=== PATIENT | female | born 1965 | race Two or more races ===

== ENCOUNTER 2024-05-17 13:22 | Outpatient (RCR) | payer BC, SELFPAY ==
--- NOTE | 2024-05-17 14:48 | CTCFLWUP_ITS ---
[facility] [address] [place], [place] [address] FOLLOW-UP NOTE Date: 05/17/2024 MR#: [id number] Name: RAGHAVENDRA VASQUEZ : 1965 Dx: C50.512 Malignant neoplasm of lower-outer quadrant of left female breast Identification. Patient with stage IIa ([id number]) receptor positive HER2 negative lobular CA left b reast status post left breast lumpectomy chemo not offered due to low pro Funmi adjuvant radiation th erapy to the left breast 04/12/2023 through 05/07/2023 4990. Has had left breast tenderness shortly after treatment. Patient currently on tamoxifen. Left mammogram 04/03/2024 probable benign findings recommending repeat in 6 months. Had left breast ultrasound 04/21/2024 cyst 5 x 4 x 5 mm no solid nodules along with extensive scar f ormation and skin edema probable benign findings category 3. Recommending 6 months as well. As I see patient there is persistent redness and tenderness in the lateral portion of the breast. No discrete tumor felt. Patient has already seen medical. Oncologist Dr. Pereira who has ordered imaging studies for December 22. A#!. Stage IIa receptor positive HER2 negative invasive lobular left breast CA status post partial m astectomy postoperation therapy completed 05/07/2003. #2. Patient on tamoxifen with low risk pro Funmi score. #3. Has persistent erythema and induration left breast. Imaging studies ultrasound and mammogram sug gest benign process repeat in 6 months time. #4. Being followed by medical oncologist Dr. Pereira who has ordered imaging studies for December 2024 a nd will see her prior. I will see her as needed in the future. Electronically signed by: Roshan Luciano M.D. 05/17/2024 2:46 PM
== END 2024-06-03 23:59 | disposition home or self-care (01) ==
LOC: SCTC 13:22
PROVIDERS: PCP Internal Medicine; Referring Provider Internal Medicine; Visit Provider Radiology Therapeutic Radiology
DX: C50.512 Malignant neoplasm of lower-outer quadrant of left female breast (principal); Z17.0 Estrogen receptor positive status [ER+]; Z17.32 Human epidermal growth factor receptor 2 negative status; Z90.12 Acquired absence of left breast and nipple; Z79.810 Long term (current) use of selective estrogen receptor modulators (SERMs); N64.51 Induration of breast
CPT/HCPCS: 99212; G0463

== ENCOUNTER → 2024-10-03 | Outpatient (CLI) | payer BC, SELFPAY ==
--- NOTE | 2024-10-03 13:00 | XR_ITS ---
Examination: Diagnostic digital mammography, bilateral Computer aided detection 3-D breast Tomosynthesis, bilateral Date and time of exam: October 03, 2024 1253 hours Compared to mammograms dating to July 29, 2020 INDICATIONS: Mammograms December 03, 2023 August 26, 2022 and 04/03/2024 extensive architectural distortion left breast, history left breast carcinoma post treatment Technique: Nonmagnified MLO, CC views of the breasts to been obtained, reconstructed from 3-D Tomosynthesis images. R2 computer aided detection program utilized for evaluation of suspicious masses and/or abnormal calcifications. 3-D Tomosynthesis images obtained. Findings: No significant change in extensive architectural distortion outer left breast with surgical clips Benign calcifications Scattered areas of fibroglandular density Impression: BI-RADS Category 0: Incomplete: Need additional imaging evaluation Follow-up left breast sonography is needed to compare with the April 21, 2024 exam.
== END | disposition home or self-care (01) ==
LOC: CDIM 12:11
PROVIDERS: PCP Internal Medicine; Referring Provider Internal Medicine; Visit Provider Internal Medicine
DX: R92.8 Other abnormal and inconclusive findings on diagnostic imaging of breast (principal); Z85.3 Personal history of malignant neoplasm of breast
CPT/HCPCS: 77062; 77066; G0279

== ENCOUNTER → 2024-10-24 | Outpatient (CLI) | payer BC, SELFPAY ==
--- NOTE | 2024-10-24 14:30 | XR_ITS ---
Examination: Breast ultrasound, unilateral, left Date and time of exam: October 24, 2024 1408 hours Comparison April 21, 2024 INDICATIONS: Personal history left breast cancer lumpectomy 2022, left breast sonogram April 21, 2024 extensive scar formation 4:00 position left breast Technique: Real-time benedict scale ultrasonographic imaging performed left breast including all 4 quadrants as well as nipple retroareolar and axillary region. Findings: 8:00 cyst 4 x 4 millimeter 4:00 scar formation again noted with skin edema IMPRESSION: BI-RADS Category 2: Benign findings
== END | disposition home or self-care (01) ==
LOC: CDIM 13:46
PROVIDERS: PCP Internal Medicine; Referring Provider Internal Medicine Hematology & Oncology; Visit Provider Internal Medicine Hematology & Oncology
DX: N60.02 Solitary cyst of left breast (principal); C50.512 Malignant neoplasm of lower-outer quadrant of left female breast; C50.412 Malignant neoplasm of upper-outer quadrant of left female breast
CPT/HCPCS: 76641

== ENCOUNTER 2024-12-11 14:55 | Outpatient (RCR) | payer BC, SELFPAY ==
--- NOTE | 2024-12-17 23:15 | CTCFLWUP_ITS ---
Patient: RAIZA ROBERTS : 1965 Page 2 of 3 FOLLOW UP NOTE DATE OF SERVICE: 12/11/2024 NAME: RAIZA ROBERTS ACCOUNT: [id number] : 1965 AGE: 59 INTERVAL HISTORY: Subjective: Chief Complaint Follow-up for breast cancer treatment, anxiety and mood changes related to medication History of Present Illness Raiza Sloan is a female patient with a history of breast cancer, presenting for follow-up. She reports sleeping on the couch, which she finds uncomfortable. The patient is currently taking tamoxifen and vitamin D daily. She mentions experiencing anxiety, depression, and mood changes when she was on a different medication, which she describes as normal with a new diagnosis. The patient underwent a lumpectomy on 12/21/2022 for stage two breast cancer, following a biopsy on 11/04/2022. She completed radiation therapy from April 12 to May 07, 2023. Raiza is adhering to her current treatment regimen and reports taking her medications as prescribed. She mentions that people often tell her they can't tell she had cancer, indicating a positive recovery process. Raiza discusses her attempt to apply for shelter from [employer], which was denied due to improper documentation. This situation appears to be causing some stress, as she needs to gather all relevant medical records to reapply correctly. Medications and Supplements - Vitamin D - Taken daily - Tamoxifen - Patient reports being anxious, depressed, and welch on previous medication (likely anastrozole) - Anastrozole - Discontinued - Patient reports being anxious, depressed, and welch on this medication Review of Systems Psychiatric: Positive for anxiety and depression (previously). Objective: Laboratory, Imaging, and Diagnostic Test Results - Biopsy: 11/04/2022 - Mammogram: November 2022 ONCOLOGY HISTORY: DIAGNOSIS: Stage IIa (pT2, pN0, cM0), grade 1, ER positive, NH positive, HER2/honey negative invasive lobular carcinoma of the left breast (s/p left breast lumpectomy and sentinel lymph node biopsy (12/21/2022) Prosigna (R) breast cancer gene signature assay score showed low risk disease. Chemotherapy not offered. S/p adjuvant radiation therapy to the left breast (04/12/2023 - 05/07/2023) Anastrozole was started on 07/29/2023. Anastrozole discontinued due to significant mood swings. Patient was started on tamoxifen on 12/14/2023 and is currently taking History family history of breast cancer. Sister had breast cancer in her late 40s. BRCA 1and2 negative. Obesity REASON FOR TODAY?S VISIT: Patient is 59-year-old woman who is obese but fairly active. Patient have early stage breast cancer for which she was treated with a lumpectomy and adjuvant radiation followed by anastrozole. Patient has been on tamoxifen since December 2023 as was unable to tolerate anastrozole Patient complains of itching on her hand and legs which is chronic for her and she scratches herself. Hydrocortisone cream seems to relieve it. Malignant neoplasm of lower-outer quadrant of left female breast [ICD10] C50.512; Malignant neoplasm of upper-outer quadrant of left female breast [ICD10] C50.412 DATE OF DIAGNOSIS: 11/04/2022 STAGE/TNM: [id number] prosigna 34-low risk TREATMENT HISTORY: Care?Plan Start?Date Cycle Day Intent Tamoxifen and vit D3 HISTORY OF PRESENT ILLNESS: Raiza Roberts is a 59-year-old ENG speaking female with the following oncology history. 08/01/2022: Bilateral screening mammograms? 08/26/2022: Left breast ultrasound? 11/04/2022: Ultrasound-guided percutaneous left breast biopsy? 12/18/2022: Patient had a left breast partial mastectomy and sentinel lymph node biopsy? 01/20/2023: Patient was seen by radiation oncologist Dr. Herzog. Dr. Luciano ordered BRCA 1and2 study as well as Oncotype DX study. 02/03/2023: [facility] hereditary cancer test is negative for BRCA 1 and 2 mutations. 02/04/2023: Prosigna (R) breast cancer gene signature assay score 34 (low risk) 07/29/2023: Anastrozole 1 mg p.o. daily prescribed. 09/13/2023: Bone density test 12/14/2023: Anastrozole discontinued due to mood swings. Patient is started on tamoxifen 20 mg p.o. daily. OTHER MEDICAL HISTORY/CONDITIONS: Depression/anxiety Endometriosis - dx 2004 Left breast cancer Left breast partial mastecomy; sentinel node biopsy - 12/18/22 Cholecystectomy 2000 Ectopic - 2002 Cervical spine surgery Left knee surgery - 1996 FAMILY HISTORY: Sibling: brother -dx 37- melenoma; sister dx 48 - breast Cancer History:?2 paternal cousins- utrine/ ovarian in 30's SOCIAL HISTORY: Occupational?History:?Medically retired [employer] Education?Level:?College Graduate, 2 year degree Marital?Status:? 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 bupropion HCl - 150 mg Daily 2. Citracal + D Slow Release - 600 mg-12.5 mcg (500 unit) 1 tab one tab po twice a day 3. hydrocodone-acetaminophen - 5-325 mg 1 tab three times a day 4. hydrocortisone - 0.5 % 5 mg Daily 5. methocarbamol - 750 mg 1 tab Every day before sleep 6. sertraline - 100 mg Daily 7. tamoxifen - 20 mg 1 tab one tab po q daily Medications Last Reconciled by Cathy Nguyen MA on 12/11/2024 ALLERGIES: CODEINE PHOSPHATE REVIEW OF SYSTEMS: A complete 14-point review of systems was performed and is negative except as noted in interval history. PHYSICAL EXAMINATION: VITAL SIGNS: Temperature?99.7, B/P?152/91, Oxygen?Saturation?96% PAIN: 0 - No pain ECOG Performance Status: 0 - Asymptomatic and fully active GENERAL APPEARANCE: Appears well, in no apparent distress, appropriately interactive. HEENT: Normocephalic, no temporal wasting, normal conjunctiva, no scleral icterus, normal hearing, lips without lesions, neck normal range of motion. CARDIOVASCULAR: Not assessed. PULMONARY: Normal respiratory effort, no respiratory distress or use of accessory muscles, speaking in full sentences, no tachypnea. EXTREMITIES: No pedal edema or cyanosis. SKIN: Normal skin appearance. NEUROLOGIC: Alert and oriented x4. PSHYCHIATRIC: Appropriate affect, mood normal, behavior normal, intact thought and speech. LABORATORY DATA: I have personally reviewed and interpreted each of the patient?s relevant lab tests, abnormal findings are below: Date 11/18/23 04/10/24 ??WHITE?BLOOD?COUNT?(Thou/mm3) 6.0 7.3 ??RED?BLOOD?COUNT?(Miln/mm3) 4.21 4.05 ??HEMOGLOBIN?(gm/dl) 12.7 12.5 ??HEMATOCRIT?(%) 38.7 37.9 ??PLATELET?COUNT?(Thou/mm3) 241 243 ??NEUTROPHILS?%,?AUTO?(%) 58 57 ??LYMPH?%,?AUTO?(%) 29 30 ??NEUTROPHILS,?AUTO?(Thou/mm3) 3.5 4.2 ??GLUCOSE,RANDOM?(mg/dL) ? 90 ??BLOOD?UREA?NITROGEN?(mg/dL) ? 16 ??CREATININE?(mg/dL) ? 1.00 ??SODIUM?(mmol/L) ? 140 ??POTASSIUM?(mmol/L) ? 3.8 ??CHLORIDE?(mmol/L) ? 106 ??CrCl?(CandG)?(ml/min) ? 77.57 ??AST/SGOT?(Unit/L) ? 16 ??ALT/SGPT?(Unit/L) ? 12 ??ALKALINE?PHOSPHATASE?(Unit/L) ? 51 ??BILIRUBIN,?TOTAL?(mg/dL) ? 0.6 ??PROTEIN?TOTAL?(gm/dl) ? 7.1 ??ALBUMIN,?SERUM?(gm/dl) ? 4.1 ??GLOBULIN?(gm/dl) ? 3.0 ??ALBUMIN/GLOBULIN?RATIO ? 1.4 ??CALCIUM,?SERUM?(mg/dL) ? 9.4 ??CALCIUM?SERUM?(CORRECTED)?(mg/dL) ? 9.4 ??CEA?(O*)?(ng/ml) ? <?0.5 ASSESSMENT/PLAN: Assessment and Plan: Raiza Sloan, a female patient with a history of breast cancer, presents for follow-up of her ongoing treatment and management. Breast Cancer Assessment: Patient has a history of low-risk breast cancer, diagnosed via biopsy on 11/04/2022. She underwent a lumpectomy on 12/21/2022 for stage 2 disease, followed by radiation therapy from April 12 to May 07, 2023. The patient is currently on hormonal therapy as part of her treatment plan. Plan: - Continue current hormonal therapy regimen: - Tamoxifen for a few more years - Switch to anastrozole until 2030 - Total treatment duration: 10 years - Order mammogram for next year - Consider Netera test for Minimal Residual Disease (MRD) - Follow-up appointment in 6 months - Educate patient on: - Breast self-massage techniques to desensitize the area and maintain skin health - Lymphedema precautions, particularly during yard work Vitamin D Supplementation Assessment: Patient reports daily compliance with vitamin D supplementation. Plan: - Continue current vitamin D supplementation regimen ORDERS: Order # Description [id number] MD Follow Up 6 Month + Comprehensive Metabolic Panel - 12 + CBC with Auto Diff [id number] 3D Mammogram Screening + Bilateral idris RETURN TO CLINIC: BILLING AND COMPLIANCE: I reviewed external records from providers outside my specialty as summarized above. I spent a total of 50 minutes on this patient?s care on the day of their visit excluding time spent related to any billed procedures. This time includes time spent with the patient as well as time spent documenting in the medical record, reviewing patients records and tests, obtaining history, placing orders, communicating with other healthcare professionals, counseling the patient, family or caregiver, and/or care coordination for the diagnoses above. Electronically Signed by: {Object.Sanct_ID*PnP.NameFL@M}, {Object.Sanct_ID*PnP.Suffix@U} D: {Object.Sanct_Date} T: {Object.Sanct_Time} CC: PCP: Naheed Eduardo Referring: Naheed Eduardo This document was completed utilizing speech recognition software. Grammatical errors, random word insertions, pronoun errors, and incomplete sentences are an occasional consequence of this system due to software limitations, ambient noise, and hardware issues. Any formal questions or concerns about the content, text or information contained within the body of this dictation should be directly addressed to the provider for clarification.
== END 2025-01-01 23:59 | disposition home or self-care (01) ==
LOC: SCTC 14:55
PROVIDERS: PCP Internal Medicine; Referring Provider Internal Medicine; Visit Provider Internal Medicine Hematology & Oncology
DX: C50.512 Malignant neoplasm of lower-outer quadrant of left female breast (principal); Z17.0 Estrogen receptor positive status [ER+]; Z17.21 Progesterone receptor positive status; Z17.32 Human epidermal growth factor receptor 2 negative status; Z79.810 Long term (current) use of selective estrogen receptor modulators (SERMs); Z92.3 Personal history of irradiation
CPT/HCPCS: 99212; G0463

== ENCOUNTER → 2025-01-29 | Outpatient (CLI) | payer BC, SELFPAY ==
--- NOTE | 2025-01-29 13:00 | XR_ITS ---
Examination: Screening digital mammography, bilateral Computer aided detection 3-D breast Tomosynthesis, bilateral Date and time of exam: January 29, 2025, 1247 hours Compared to mammograms dating to July 24, 2022 Indication: Screening Technique: Nonmagnified MLO, CC views of the breasts to been obtained, reconstructed from 3-D Tomosynthesis images. R2 computer aided detection program utilized for evaluation of suspicious masses and/or abnormal calcifications. 3-D Tomosynthesis images obtained. Findings: Scattered areas of fibroglandular density. Scar formation and surgical clips upper outer left breast More pronounced architectural distortion outer left breast on the CC view Impression: BI-RADS Category 0: Incomplete: Need additional imaging evaluation More pronounced architectural distortion outer left breast on the CC view posterior depth, recommend follow-up spot tomographic views upper outer left breast posterior depth, bilateral breast sonography to complete the workup
== END | disposition home or self-care (01) ==
PROVIDERS: PCP Internal Medicine; Referring Provider Internal Medicine Hematology & Oncology; Visit Provider Internal Medicine Hematology & Oncology
DX: Z12.31 Encounter for screening mammogram for malignant neoplasm of breast (principal); R92.8 Other abnormal and inconclusive findings on diagnostic imaging of breast; C50.512 Malignant neoplasm of lower-outer quadrant of left female breast; C50.412 Malignant neoplasm of upper-outer quadrant of left female breast
CPT/HCPCS: 77063; 77067

== ENCOUNTER → 2025-03-23 | Outpatient (CLI) | payer BC, SELFPAY ==
--- NOTE | 2025-03-23 10:15 | XR_ITS ---
Examination: Breast ultrasound complete, bilateral Date and time of exam: March 23, 2025 11:40 AM INDICATIONS: Mammogram January 29, 2025 more pronounced architectural distortion upper outer left breast, personal history left breast cancer post lumpectomy Technique: Real-time grayscale ultrasonographic imaging bilateral breasts, including all 4 quadrants as well as nipple retroareolar and axillary regions. Findings: Sonographic images right breast No cystic or solid mass 4:00 scar formation 18 x 18 mm 8:00 cyst 4 x 4 millimeter IMPRESSION: BI-RADS Category 3: Probably benign findings Recommend 3-6 month continued left breast sonogram follow-up to document stability of scar formation 4:00 position left breast
--- NOTE | 2025-03-23 11:15 | XR_ITS ---
Examination: Diagnostic digital mammography, unilateral, left Computer aided detection 3-D breast Tomosynthesis, unilateral Date and time of exam: March 23, 2025 at 12:00 PM INDICATIONS: Mammogram January 29, 2025 with pronounced architectural distortion upper outer left breast on the CC view Technique: Nonmagnified MLO, CC views of the left breast have been obtained, reconstructed from 3-D Tomosynthesis images. R2 computer aided detection program utilized for evaluation of suspicious masses and/or abnormal calcifications. 3-D Tomosynthesis images obtained. Findings: Scattered areas of fibroglandular density Probably benign architectural distortion upper outer left breast in this patient with a personal history left breast cancer lumpectomy Impression: BI-RADS category 3: Probably benign findings Continued 6 month left mammogram follow-up is needed to document stability of architectural distortion outer left breast
== END | disposition home or self-care (01) ==
PROVIDERS: PCP Student in an Organized Health Care Education/Training Program; Referring Provider Student in an Organized Health Care Education/Training Program; Visit Provider Student in an Organized Health Care Education/Training Program
DX: R92.332 Mammographic heterogeneous density, left breast (principal); R92.8 Other abnormal and inconclusive findings on diagnostic imaging of breast; N64.89 Other specified disorders of breast; Z85.3 Personal history of malignant neoplasm of breast
CPT/HCPCS: 76641; 77061; 77065; G0279

== ENCOUNTER 2025-05-02 08:23 | Outpatient (RCR) | payer BC, SELFPAY ==
--- NOTE | 2025-05-02 09:43 | CTCFLWUP_ITS ---
[facility] [address] [place], [place] [address] FOLLOW-UP NOTE Date: 05/02/2025 MR#: [id number] Name: RAGHAVENDRA VASQUEZ : 1965 Dx: C50.512 Malignant neoplasm of lower-outer quadrant of left female breast Identification. Patient with stage IIa ([id number]) grade 1 receptor positive HER2 negative invasive lobular carcinoma of the left breast status post left partial mastectomy 12/21/2022. Pros Funmi showed low risk disease so patient underwent radiation therapy without chemo between 04/12/2023 through 05/07/2023 4990 cGy completed currently taking tamoxifen along with calcium and vitamin D. Underwent reduction mammoplasty performed in [place] 1 [address] Jacob Kerr.. Still having significant discomfort in the left breast. Reportedly had Mammogram just prior to the surgery not immediately available to us. As observed the breast noticed the surgical changes in both breasts. The left breast the previously treated breast appears a bit more erythematous and tender. Assessment.#1. History of stage IIa receptor positive HER2 negative invasive lobular carcinoma left breast status post left partial mastectomy 12/21/2022. #2. Received postop radiation 4990 cGy completed 05/07/2023, currently on tamoxifen. #3. reduction mammoplasty surgery 1 month ago, Jacob Kerr [place] #4. Will attempt to get records of the surgery before next visit including any pathology that may have been submitted. #5. Elected to place patient on [place] 5 every 6 as needed due to persistent pain left breast. Cures website checked. #6. Has follow-up with Dr. Pereira in 6 weeks. I will see her again in 3 months. Electronically signed by: Roshan Luciano M.D. 05/02/2025 9:40 AM
== END 2025-05-04 23:59 | disposition home or self-care (01) ==
LOC: SCTC 08:23
PROVIDERS: PCP Student in an Organized Health Care Education/Training Program; Referring Provider Radiology Therapeutic Radiology; Visit Provider Radiology Therapeutic Radiology
DX: C50.512 Malignant neoplasm of lower-outer quadrant of left female breast (principal); Z17.0 Estrogen receptor positive status [ER+]; Z17.21 Progesterone receptor positive status; Z17.32 Human epidermal growth factor receptor 2 negative status; Z90.12 Acquired absence of left breast and nipple; Z92.3 Personal history of irradiation; Z79.810 Long term (current) use of selective estrogen receptor modulators (SERMs); N64.4 Mastodynia
CPT/HCPCS: 99213; G0463